=== PATIENT | female | born 1970 | race Two or more races ===

== ENCOUNTER 2016-11-23 00:18 | Inpatient (IN) | payer BC ==
[2016-11-23] MEDS ORDERED: diPHENhydraMINE IV* 50 MG/ML 1 ml VIAL (BENADRYL) ONE (01:08)
[2016-11-23] MEDS ORDERED: Haloperidol INJ IV/IM* 5 MG/ML AMP ONE (01:08)
[2016-11-23] MEDS ORDERED: LORazepam INJ* 2 MG/ML 1 ML VIAL ONE (01:08)
[2016-11-23 02:20] LABS: Hematocrit 33 % (35-47); Hemoglobin 9.9 g/dl (12.0-16.0); Mean Corpuscular HGB Conc 30 g/dl (31-36); Mean Corpuscular Hemoglobin 19 pg (27-31); Mean Corpuscular Volume 65 fL (80-97); Mean Platelet Volume 9 um3 (7.4-10.4); Red Blood Count 5.12 10^6/ul (4.0-5.4); Red Cell Distribution Width 18 % (10.5-15); White Blood Count 11.3 10^3/ul (3.5-10.8)
[2016-11-23 02:21] LABS: Comments Flag Yes
[2016-11-23 02:22] LABS: Add Diff/Slide Review? Slide Review Added
[2016-11-23 02:28] LABS: ALT 14 U/L (7-52); AST 23 U/L (13-39); Acetaminophen < 15 mcg/mL; Albumin 3.7 g/dL (3.2-5.2); Alcohol < 10 mg/dL (<10); Alkaline Phosphatase 59 U/L (34-104); Anion Gap 6 mmol/L (2-11); BUN/Creatinine Ratio 13.3 (8-20); Blood Urea Nitrogen 11 mg/dL (6-24); CO2 Carbon Dioxide 25 mmol/L (22-32); Calcium 8.8 mg/dL (8.6-10.3); Chloride 107 mmol/L (101-111); EGFR African American 95.2 (>60); Glucose 100 mg/dL (70-100); Potassium 3.6 mmol/L (3.5-5.0); Salicylate < 2.50 mg/dL (<30); Sodium 138 mmol/L (133-145); Total Protein 6.7 g/dL (6.4-8.9)
[2016-11-23 02:40] LABS: TSH (Thyroid Stimulating Horm) 6.34 mcIU/mL (0.34-5.60)
[2016-11-23 03:24] LABS: Hypochromasia 2+; Microcytosis 2+
[2016-11-23 06:31] LABS: Urine Bacteria 1+ (Absent); Urine Bilirubin Negative (Negative); Urine Glucose Negative (Negative); Urine Nitrite Negative (Negative)
--- NOTE | 2016-11-23 06:37 | ED ---
Nacho Al Rebecca, scribed for Junaid Palacios on 11/23/16 at 0209 . Psychiatric Complaint - HPI Summary HPI Summary: Pt is a 46 y/o F BIBA accompanied by [place] [employer] as a 941. Per nurse's triage note, the pt had been running in traffic and had a spit mask applied [employer] [employer]. per police report, she had been spitting at the police and EMS staff. Upon arrival to [facility], the pt is combative and noncompliant. On evaluatoin pt confirms that she was running down the road and stated how she "felt my child was under attack" and that the "police were coming to my house and threatening me" so she "was running down, trying to follow the structures of my son and where they were going." Stated "I was following but then when I saw the big black trucks I said this is it" and that she "told a lady who is driving that ' if you don't call the police you will .'" Pt denies any drug or EtOH use and denies any pain. - History Of Current Complaint Chief Complaint: EDMentalHealth Time Seen by Provider: 11/23/16 01:22 Hx Obtained From: Patient Onset/Duration: Still Present - Combative, noncompliant Character: Angry Aggravating Factor(s): Nothing Alleviating Factor(s): Nothing - Allergies/Home Medications Allergies/Adverse Reactions: Allergies Allergy/AdvReac Type Severity Reaction Status Date / Time No Known Allergies Allergy Verified 11/23/16 00:30 PMH/Surg Hx/FS Hx/Imm Hx Previously Healthy: No - UNKNOWN - combative and uncooperative Infectious Disease History: Unable to Obtain/Confirm Infectious Disease History: Reports: Traveled Outside the [place] in Last 30 Days - Family History Known Family History: Positive: Unknown - Combative and uncooperative - Social History Alcohol Use: unknown Substance Use Type: Reports: Other Substance Use Comment - Amount & Last Used: unknown Smoking Status (MU): Unknown if Ever Smoked Review of Systems Positive: Other - NEGATIVE: any pain Positive: Other - combative, noncompliant All Other Systems Reviewed And Are Negative: Yes Physical Exam - Summary Physical Exam Summary: Appearance: Restrained Skin: warm, dry, reflects adequate perfusion Head/face: normal Eyes: EOMI, ROSANGELA ENT: normal Respiratory: CTA, breath sounds present Cardiovascular: RRR, pulses symmetrical Abdomen: nontender, soft Bowel: present Musculoskeletal: No edema Neuro: normal, sensory motor intact, A&Ox3 Psychiatric: Anxious, combative Triage Information Reviewed: Yes Vital Signs On Initial Exam: Initial Vitals Temp Pulse Resp BP Pulse Ox 98.2 F 122 20 127/89 99 11/23/16 00:20 11/23/16 00:20 11/23/16 00:20 11/23/16 00:20 11/23/16 00:20 Vital Signs Reviewed: Yes Diagnostics - Vital Signs Vital Signs Temp Pulse Resp BP Pulse Ox 11/23/16 01:30 120/76 11/23/16 00:20 98.2 F 122 20 127/89 99 - Laboratory Result Diagrams: 11/23/16 02:03 11/23/16 02:03 Lab Statement: Any lab studies that have been ordered have been reviewed, and results considered in the medical decision making process. Course/Dx - Course Assessment/Plan: Pt is a 46 y/o F BIBA accompanied by [facility] as a 941. Per nurse's triage note, the pt had been running in traffic and had a spit mask applied [employer] [employer]. per police report, she had been spitting at the police and EMS staff. Upon arrival to [facility], the pt is combative and noncompliant. On evaluatoin pt confirms that she was running down the road and stated how she "felt my child was under attack" and that the "police were coming to my house and threatening me" so she "was running down, trying to follow the structures of my son and where they were going." Stated "I was following but then when I saw the big black trucks I said this is it" and that she "told a lady who is driving that 'if you don't call the police you will .'" Pt denies any drug or EtOH use and denies any pain. Medically cleared for MHE at 0533. Pt will be signed out, pending dispo, awaiting completion of MHE. Elevated BP noted. - Differential Dx/Clinical Impression Provider Diagnosis: Acute psychosis Discharge - Discharge Plan Condition: Stable Disposition: OTHER Discharge Disposition Comment: Pt will be signed out, pending dispo, awaiting MHE completion Referrals: Non Staff,Doctor [Primary Care Provider] - The documentation as recorded by the scribNacho wright Rebecca accurately reflects the service I personally performed and the decisions made by me, Junaid Palacios.
[2016-11-23 06:38] LABS: Benzodiazepine Urine Screen None Detected (None Detect)
[2016-11-23] MEDS ORDERED: LORazepam INJ* 2 MG/ML 1 ML VIAL IM ONE (11:25)
[2016-11-23] MEDS ORDERED: Acetaminophen TAB* 325 MG PO PRN (12:29)
[2016-11-23] MEDS ORDERED: Al Hydrox/Mg Hydrox/Simet LIQ* 30 ML UDC PO PRN (12:29)
--- NOTE | 2016-11-23 17:21 | ED ---
Anca Al Alfonso, scribed for Jyoti Carranza MD on 11/23/16 at 1220 . Progress - Progress Note Progress Note: This patient was signed out from Dr. Palacios, pending disposition, awaiting MHE. After MHE patient [place] be [place] [facility] The patients condition is stable and will be admitted with Dx of acute psychosis NOS. Condition: stable Disposition: admit [facility]. Reevaluated at 1215: Patient states she does not want to rehash history of present illness. She appears well. She is talking. - Consult/PCP Time Called: 09:51 Course/Dx - Diagnoses Provider Diagnoses: Acute psychosis The documentation as recorded by the Anca cespedes Alfonso accurately reflects the service I personally performed and the decisions made by , Jyoti Carranza MD.
[2016-11-24] MEDS: Haloperidol TAB* 5 MG PO PRN (09:38)
[2016-11-24] MEDS: LORazepam TAB(*) 1 MG PO PRN (09:39)
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
[2016-11-24] MEDS ORDERED: traZODone TAB* 50 MG TAB PO PRN (15:53)
[2016-11-24] MEDS: ARIPiprazole TAB* 5 MG PO SCH (20:32)
[2016-11-25] MEDS ORDERED: guaiFENesin LIQ* 100 MG/5 ML UDC PO ONE (18:00)
[2016-11-25] MEDS: ARIPiprazole TAB* 5 MG PO SCH (21:22)
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
[2016-11-26] MEDS: Docusate CAP* 100 MG PO PRN (19:30)
[2016-11-26] MEDS: diPHENhydraMINE PO* 50 MG PO PRN (20:43)
[2016-11-26] MEDS: ARIPiprazole TAB* 5 MG PO SCH (21:15)
--- NOTE | 2016-11-27 10:42 | PN ---
Subjective - Subjective Service Type: 22472 Hosp care 15 min low complexity Subjective: Patient noted have inappropriate sexual and intrusive behaviors. Patient noted to over the weekend continue manic symptoms of poor sleep, uatsdin preoccupation, grandiose and paranoid delusions, and rapid speech. Patient noted to be dancing naked in the comfort room. She reports she was exercising and removed her clothes due to her sweating. She reports she is a foreigner and did not understand her behaviors could be looked upon as inappropriate. Patient has some insight when this provider confronts her logic during attempts to minimize the behavior. Patient noted to attend groups but has been asked to leave groups due to her becoming disruptive or being tangential when speaking. Patient informed TOO would be initiated today. She denies SI/HI and AH/VH. Objective - Appearance Appearance: Well Developed/Nourished Dysmorphic Features: No Hygiene: Normal Grooming: Fairly Well Kept - Behavior Exhibits Abnormal Movement: No - Attitude and Relatedness Attitude and Relatedness: Cooperative Eye Contact: Good - Speech Quality: Unpressured Latencies: Normal Quantity: Copious - Mood Patient's Decription of Mood: "Fine" - Affect Observed Affect: Expansive Affect Consistent with: Euthymia - Thought Process Patient's Thought Process: Coherent Thought Content: No Passive Wish, No Suicidal Planning, No Homicidal Ideation, No Paranoid Ideation - Sensorium Experiencing Hallucinations: No, Sensorium is Clear Type of Hallucinations: Visual: No, Auditory: No, Command: No - Level of Consciousness Level of Consciousness: Alert Orientation: Yes Intact, Yes Orientated to Time, Yes Orientated to Place, Yes Orientated to Person - Impulse Control Impulse Control: Intact - Insight and Judgement Insight and Judgement: Fair - Group Participation Particating in Group Activities: Yes - Medication Management Medication Management Adherence: Yes Assessment - Assessment Merits Inpatient Hospitalization: For Immediate Safety, For Stabilization Inpatient DSM-IV Dx: ASSESSMENT: . 1. Bipolar 1 d/o MRE manic with PFs Plan - Plan Treatment Plan: Name: SHERYL WHITE Birthdate: 1970 [id number] PLAN: ------ 1. Continue admission to [facility] for safety and symptom mx. 2. Patient declines recommendation for start of psychotropic meds. 3. Patient informed Abilify 10mg po qhs has been started for mood stabilization and psychosis. 4. Patient declined recommended re-start of Trazodone for insomnia and Gabapentin for anxiety. 5. Patient informed treatment over objection will be initiated. 6. Collateral information obtained from son and ex- without sharing with them information of patient's admission. 7. Patient to participate in milieu activities and groups. Continued Medication Management: Continue Outpt Medication Medications: Current Medications Acetaminophen (Tylenol Tab*) 650 mg PO Q4H PRN PRN Reason: for pain; or Temp >101 F Al Hydrox/Mg Hydrox/Simethicone (Maalox Plus*) 30 ml PO Q4H PRN PRN Reason: INDIGESTION Last Admin: 11/25/16 14:24 Dose: 30 ml Aripiprazole (Abilify Tab*) 10 mg PO BEDTIME SYDNIE Last Admin: 11/26/16 21:15 Dose: Not Given Diphenhydramine HCl (Benadryl Po*) 50 mg PO Q6H PRN PRN Reason: AGITATION/ANXIETY/INSOMNIA Last Admin: 11/26/16 20:43 Dose: 50 mg Docusate Sodium (Colace Cap*) 200 mg PO DAILY PRN PRN Reason: CONSTIPATION Last Admin: 11/26/16 19:30 Dose: 200 mg Haloperidol (Haldol Tab*) 5 mg PO Q6H PRN PRN Reason: AGITATION/ANXIETY/INSOMNIA Last Admin: 11/24/16 09:38 Dose: 5 mg Lorazepam (Ativan Tab(*)) 2 mg PO Q6H PRN PRN Reason: AGITATION/ANXIETY/INSOMNIA Last Admin: 11/24/16 09:39 Dose: 2 mg Trazodone HCl (Desyrel Tab*) 50 mg PO BEDTIME PRN PRN Reason: INSOMNIA - Discharge Plan Discharge Plan: Outpatient Follow Up
[2016-11-27] MEDS: Docusate CAP* 100 MG PO PRN (13:57)
[2016-11-27] MEDS: Haloperidol TAB* 5 MG PO PRN (16:23)
[2016-11-27] MEDS: LORazepam TAB(*) 1 MG PO PRN (16:23)
[2016-11-27] MEDS ORDERED: Neomycin/Polym/Bacit TOP OINT* 15 GM TOPICAL PRN (16:47)
[2016-11-27] MEDS ORDERED: CMCS: Melatonin (NF) 3 MG TAB PO PRN (16:48)
[2016-11-27] MEDS: ARIPiprazole TAB* 5 MG PO SCH (21:15)
[2016-11-28] MEDS: Neomycin/Polym/Bacit TOP OINT* 15 GM TOPICAL SCH (11:38)
--- NOTE | 2016-11-28 16:01 | PN ---
Subjective - Subjective Service Type: 96592 Hosp care 15 min low complexity Subjective: Patient noted to continue displaying manic behaviors including intrusiveness, easy irritability, disruptive behaviors in the milieu, inappropriate comments, and inappropriate touching. She is expansive in affect and circumstantial in TP. Patient continues to have TC focused on discharge, retrieving her belongings from the [facility] and paranoid/ grandiose delusions noted on admission. Patient has not been med compliant. She was informed TOO has been initiated. Patient denies SI/HI and AH/VH. Objective - Appearance Appearance: Well Developed/Nourished, Healthy Appearing Dysmorphic Features: No Hygiene: Normal Grooming: Fairly Well Kept - Behavior Psychomotor Activities: Normal Exhibits Abnormal Movement: No - Attitude and Relatedness Attitude and Relatedness: Minimally Cooperative - Speech Quality: Unpressured Latencies: Short Quantity: Copious - Mood Patient's Decription of Mood: "Anxious" - Affect Observed Affect: Expansive Affect Consistent with: Euthymia - Thought Process Patient's Thought Process: Coherent Thought Content: No Passive Wish, No Suicidal Planning, No Homicidal Ideation, No Paranoid Ideation - Sensorium Experiencing Hallucinations: No, Sensorium is Clear Type of Hallucinations: Visual: No, Auditory: No, Command: No - Level of Consciousness Level of Consciousness: Alert Orientation: Yes Intact, Yes Orientated to Time, Yes Orientated to Place, Yes Orientated to Person - Impulse Control Impulse Control: Impaired - Insight and Judgement Insight and Judgement: Impaired - Group Participation Particating in Group Activities: No - Medication Management Medication Management Adherence: No Assessment - Assessment Merits Inpatient Hospitalization: For Immediate Safety, For Stabilization Inpatient DSM-IV Dx: ASSESSMENT: . 1. Bipolar 1 d/o MRE manic with PFs Plan - Plan Treatment Plan: Name: SHERYL WHITE Birthdate: 1970 [id number] PLAN: ------ 1. Continue admission to [facility] for safety and symptom mx. 2. Patient declines recommendation for start of psychotropic meds. 3. Patient encouraged to take Abilify 10mg po qhs which was started for mood stabilization and psychosis. 4. Patient declined recommended re-start of Trazodone for insomnia and Gabapentin for anxiety. 5. Patient informed treatment over objection has been initiated. 6. Collateral information obtained from son and ex- without sharing with them information of patient's admission. 7. Patient to participate in milieu activities and groups. Medications: Current Medications Acetaminophen (Tylenol Tab*) 650 mg PO Q4H PRN PRN Reason: for pain; or Temp >101 F Al Hydrox/Mg Hydrox/Simethicone (Maalox Plus*) 30 ml PO Q4H PRN PRN Reason: INDIGESTION Last Admin: 11/25/16 14:24 Dose: 30 ml Aripiprazole (Abilify Tab*) 10 mg PO BEDTIME SYDNIE Last Admin: 11/27/16 21:15 Dose: Not Given Diphenhydramine HCl (Benadryl Po*) 50 mg PO Q6H PRN PRN Reason: AGITATION/ANXIETY/INSOMNIA Last Admin: 11/26/16 20:43 Dose: 50 mg Docusate Sodium (Colace Cap*) 200 mg PO DAILY PRN PRN Reason: CONSTIPATION Last Admin: 11/27/16 13:57 Dose: 200 mg Haloperidol (Haldol Tab*) 5 mg PO Q6H PRN PRN Reason: AGITATION/ANXIETY/INSOMNIA Last Admin: 11/27/16 16:23 Dose: 5 mg Lorazepam (Ativan Tab(*)) 2 mg PO Q6H PRN PRN Reason: AGITATION/ANXIETY/INSOMNIA Last Admin: 11/27/16 16:23 Dose: 2 mg Melatonin (Melatonin (Nf)) 3 mg PO BEDTIME PRN PRN Reason: INSOMNIA Neomycin/Polymyxin/Bacitracin (Neosporin Top Oint Tube*) 1 applic TOPICAL DAILY SYDNIE Last Admin: 11/28/16 11:38 Dose: Not Given Trazodone HCl (Desyrel Tab*) 50 mg PO BEDTIME PRN PRN Reason: INSOMNIA - Discharge Plan Discharge Plan: Outpatient Follow Up
[2016-11-28] MEDS: Docusate CAP* 100 MG PO PRN (16:19)
[2016-11-28] MEDS: ARIPiprazole TAB* 5 MG PO SCH (20:53)
[2016-11-28] MEDS: Docusate CAP* 100 MG PO SCH (21:24)
[2016-11-29] MEDS: Docusate CAP* 100 MG PO SCH ×3 (07:46→20:10)
[2016-11-29] MEDS: Neomycin/Polym/Bacit TOP OINT* 15 GM TOPICAL SCH (10:25)
--- NOTE | 2016-11-29 10:47 | PN ---
Subjective - Subjective Service Type: [id number] Hosp care 15 min low complexity Subjective: Patient noted to continue displaying prior noted manic behaviors. She is expansive in affect and circumstantial in TP. She is more PMA today. Her gaze is intense. Patient continues to be med non- compliant. Patient again had poor sleep. Patient denies SI/HI and AH/VH. Objective - Appearance Appearance: Well Developed/Nourished Dysmorphic Features: No Hygiene: Normal Grooming: Fairly Well Kept - Behavior Psychomotor Activities: Abnormal-Increased Exhibits Abnormal Movement: No - Attitude and Relatedness Attitude and Relatedness: Cooperative Eye Contact: Fair - Speech Quality: Pressured Latencies: Short Quantity: Copious - Mood Patient's Decription of Mood: "Fine" - Affect Observed Affect: Expansive Affect Consistent with: Euthymia - Thought Process Patient's Thought Process: Coherent Thought Content: Yes Paranoid Ideation, No Passive Wish, No Suicidal Planning, No Homicidal Ideation - Sensorium Experiencing Hallucinations: No, Sensorium is Clear Type of Hallucinations: Visual: No, Auditory: No, Command: No - Level of Consciousness Level of Consciousness: Alert Orientation: Yes Intact, Yes Orientated to Time, Yes Orientated to Place, Yes Orientated to Person - Impulse Control Impulse Control: Impaired - Insight and Judgement Insight and Judgement: Impaired - Group Participation Particating in Group Activities: No - Medication Management Medication Management Adherence: No Assessment - Assessment Merits Inpatient Hospitalization: For Immediate Safety, For Stabilization Inpatient DSM-IV Dx: ASSESSMENT: . 1. Bipolar 1 d/o MRE manic with PFs Plan - Plan Treatment Plan: Name: SHERYL WHITE Birthdate: 1970 [id number] PLAN: ------ 1. Continue admission to [facility] for safety and symptom mx. 2. Patient declines recommendation for start of psychotropic meds. 3. Patient encouraged to take Abilify 10mg po qhs which was started for mood stabilization and psychosis. 4. Patient declined recommended re-start of Trazodone for insomnia and Gabapentin for anxiety. 5. Patient informed treatment over objection has been initiated. 6. Collateral information obtained from son and ex- without sharing with them information of patient's admission. 7. Patient to participate in milieu activities and groups. Medications: Current Medications Acetaminophen (Tylenol Tab*) 650 mg PO Q4H PRN PRN Reason: for pain; or Temp >101 F Al Hydrox/Mg Hydrox/Simethicone (Maalox Plus*) 30 ml PO Q4H PRN PRN Reason: INDIGESTION Last Admin: 11/25/16 14:24 Dose: 30 ml Aripiprazole (Abilify Tab*) 10 mg PO BEDTIME [facility] Last Admin: 11/28/16 20:53 Dose: Not Given Diphenhydramine HCl (Benadryl Po*) 50 mg PO Q6H PRN PRN Reason: AGITATION/ANXIETY/INSOMNIA Last Admin: 11/26/16 20:43 Dose: 50 mg Docusate Sodium (Colace Cap*) 200 mg PO BID [facility] Last Admin: 11/29/16 07:46 Dose: Not Given Haloperidol (Haldol Tab*) 5 mg PO Q6H PRN PRN Reason: AGITATION/ANXIETY/INSOMNIA Last Admin: 11/27/16 16:23 Dose: 5 mg Lorazepam (Ativan Tab(*)) 2 mg PO Q6H PRN PRN Reason: AGITATION/ANXIETY/INSOMNIA Last Admin: 11/27/16 16:23 Dose: 2 mg Melatonin (Melatonin (Nf)) 3 mg PO BEDTIME PRN PRN Reason: INSOMNIA Neomycin/Polymyxin/Bacitracin (Neosporin Top Oint Tube*) 1 applic TOPICAL DAILY [facility] Last Admin: 11/29/16 10:25 Dose: Not Given Trazodone HCl (Desyrel Tab*) 50 mg PO BEDTIME PRN PRN Reason: INSOMNIA
[2016-11-29] MEDS: ARIPiprazole TAB* 5 MG PO SCH (20:11)
[2016-11-29] MEDS: diPHENhydraMINE PO* 50 MG PO PRN (23:09)
[2016-11-30] MEDS: Docusate CAP* 100 MG PO SCH ×2 (08:32→20:37)
[2016-11-30] MEDS: diPHENhydraMINE PO* 50 MG PO PRN ×3 (08:34→21:08)
--- NOTE | 2016-11-30 10:43 | PN ---
Subjective - Subjective Service Type: [id number] Hosp care 15 min low complexity Subjective: Patient noted to display ongoing manic behaviors including intrusiveness, easy irritability, disruptive behaviors in the milieu, inappropriate comments, and behaviors and manner demonstrating PMA. She is expansive in affect, with intense gaze on interview and circumstantial TP. Patient continues to have TC focused on discharge, refusing meds, and attempting to "regain her dignity" as feels she is being judged by staff as hypersexual due to being found naked in the comfort room. Patient reports she was naked due to exercising and not wanting the sweat to enter her clothing and she believed the comfort room was private while occupied. Patient reports she's been in touch with [place] police who informed patient they will have her son move her belongings from her apartment. Patient continues to be med non- compliant. She was informed TOO has been submitted and we are awaiting court date. Patient denies SI/HI and AH/VH. Objective - Appearance Appearance: Well Developed/Nourished Dysmorphic Features: No Hygiene: Normal Grooming: Fairly Well Kept - Behavior Psychomotor Activities: Abnormal-Increased Exhibits Abnormal Movement: No - Attitude and Relatedness Attitude and Relatedness: Cooperative Eye Contact: Fair - Speech Quality: Pressured Latencies: Short Quantity: Copious - Mood Patient's Decription of Mood: "Fine" - Affect Observed Affect: Tense Affect Consistent with: Dysphoria - Thought Process Patient's Thought Process: Coherent Thought Content: Yes Paranoid Ideation, No Passive Wish, No Suicidal Planning, No Homicidal Ideation - Sensorium Experiencing Hallucinations: No, Sensorium is Clear Type of Hallucinations: Visual: No, Auditory: No, Command: No - Level of Consciousness Level of Consciousness: Alert Orientation: Yes Intact, Yes Orientated to Time, Yes Orientated to Place, Yes Orientated to Person - Impulse Control Impulse Control: Impaired - Insight and Judgement Insight and Judgement: Impaired - Group Participation Particating in Group Activities: No - Medication Management Medication Management Adherence: No Assessment - Assessment Merits Inpatient Hospitalization: For Immediate Safety, For Stabilization Inpatient DSM-IV Dx: ASSESSMENT: . 1. Bipolar 1 d/o MRE manic with PFs Plan - Plan Treatment Plan: Name: SHERYL WHITE Birthdate: 1970 [id number] PLAN: ------ 1. Continue admission to [facility] for safety and symptom mx. 2. Patient declines recommendation for start of psychotropic meds. 3. Patient encouraged to take Abilify 10mg po qhs which was started for mood stabilization and psychosis. 4. Patient declined recommended re-start of Trazodone for insomnia and Gabapentin for anxiety. 5. Patient informed treatment over objection has been submitted, awaiting court date. 6. Continue Colace 200mg po BID for patient constipation. She reports benefit to bowel movement on this dose. 7. Collateral information obtained from son and ex- without sharing with them information of patient's admission. 8. Patient to participate in milieu activities and groups. Medications: Current Medications Acetaminophen (Tylenol Tab*) 650 mg PO Q4H PRN PRN Reason: for pain; or Temp >101 F Al Hydrox/Mg Hydrox/Simethicone (Maalox Plus*) 30 ml PO Q4H PRN PRN Reason: INDIGESTION Last Admin: 11/25/16 14:24 Dose: 30 ml Aripiprazole (Abilify Tab*) 10 mg PO BEDTIME [facility] Last Admin: 11/29/16 20:11 Dose: Not Given Diphenhydramine HCl (Benadryl Po*) 50 mg PO Q6H PRN PRN Reason: AGITATION/ANXIETY/INSOMNIA Last Admin: 11/30/16 08:34 Dose: 50 mg Docusate Sodium (Colace Cap*) 200 mg PO BID [facility] Last Admin: 11/30/16 08:32 Dose: 200 mg Haloperidol (Haldol Tab*) 5 mg PO Q6H PRN PRN Reason: AGITATION/ANXIETY/INSOMNIA Last Admin: 11/27/16 16:23 Dose: 5 mg Lorazepam (Ativan Tab(*)) 2 mg PO Q6H PRN PRN Reason: AGITATION/ANXIETY/INSOMNIA Last Admin: 11/27/16 16:23 Dose: 2 mg Melatonin (Melatonin (Nf)) 3 mg PO BEDTIME PRN PRN Reason: INSOMNIA Last Admin: 11/29/16 12:20 Dose: 3 mg Neomycin/Polymyxin/Bacitracin (Neosporin Top Oint Tube*) 1 applic TOPICAL DAILY [facility] Last Admin: 11/29/16 10:25 Dose: Not Given Trazodone HCl (Desyrel Tab*) 50 mg PO BEDTIME PRN PRN Reason: INSOMNIA - Discharge Plan Discharge Plan: Outpatient Follow Up
[2016-11-30] MEDS: Neomycin/Polym/Bacit TOP OINT* 15 GM TOPICAL SCH (12:57)
[2016-11-30] MEDS: ARIPiprazole TAB* 5 MG PO SCH ×2 (20:22→21:09)
[2016-11-30] MEDS: Haloperidol TAB* 5 MG PO PRN (21:32)
[2016-12-01] MEDS ORDERED: LORazepam TAB(*) 1 MG ONE (00:40)
[2016-12-01] MEDS: Docusate CAP* 100 MG PO SCH ×2 (08:33→21:16)
[2016-12-01] MEDS: diPHENhydraMINE PO* 50 MG PO PRN ×3 (08:55→21:20)
[2016-12-01] MEDS: Neomycin/Polym/Bacit TOP OINT* 15 GM TOPICAL SCH (08:56)
--- NOTE | 2016-12-01 10:00 | PN ---
Subjective - Subjective Service Type: [id number] Hosp care 15 min low complexity Subjective: Patient noted to display ongoing manic behaviors including intrusiveness, easy irritability, disruptive behaviors in the milieu, inappropriate comments, and behaviors and manner demonstrating PMA. She is expansive in affect, with intense gaze on interview and tangential TP. Patient continues to have TC focused on discharge. Patient informed hearing for SHERLY has been scheduled for Sunday12/05/16 at 2pm. Patient continues to be med non-compliant. Patient denies SI/HI and AH/VH. Objective - Appearance Appearance: Well Developed/Nourished, Healthy Appearing Dysmorphic Features: No Hygiene: Normal Grooming: Fairly Well Kept - Behavior Psychomotor Activities: Abnormal-Increased Exhibits Abnormal Movement: No - Attitude and Relatedness Attitude and Relatedness: Psychotically Related Eye Contact: Poor - Speech Quality: Pressured Latencies: Short Quantity: Copious - Mood Patient's Decription of Mood: "Fine" - Affect Observed Affect: Expansive - Thought Process Patient's Thought Process: Loose Associations Thought Content: No Passive Wish, No Suicidal Planning, No Homicidal Ideation, No Paranoid Ideation - Sensorium Experiencing Hallucinations: No, Sensorium is Clear Type of Hallucinations: Visual: No, Auditory: No, Command: No - Level of Consciousness Level of Consciousness: Alert Orientation: Yes Intact, Yes Orientated to Time, Yes Orientated to Place, Yes Orientated to Person - Impulse Control Impulse Control: Impaired - Insight and Judgement Insight and Judgement: Impaired - Group Participation Particating in Group Activities: No - Medication Management Medication Management Adherence: Partial Assessment - Assessment Merits Inpatient Hospitalization: For Immediate Safety, For Stabilization Inpatient DSM-IV Dx: ASSESSMENT: . 1. Bipolar 1 d/o MRE manic with PFs Plan - Plan Treatment Plan: Name: SHERYL WHITE Birthdate: 1970 [id number] PLAN: ------ 1. Continue admission to [facility] for safety and symptom mx. 2. Patient declines recommendation for start of psychotropic meds. 3. Patient encouraged to take Abilify 10mg po qhs which was started for mood stabilization and psychosis. 4. Patient declined recommended re-start of Trazodone for insomnia and Gabapentin for anxiety. 5. Patient informed hearing for TOO will be Sunday12/05/16 at 2pm. 6. Continue Colace 200mg po BID for patient constipation. She reports benefit to bowel movement on this dose. 7. Collateral information obtained from son and ex- without sharing with them information of patient's admission. 8. Patient to participate in milieu activities and groups. Medications: Current Medications Acetaminophen (Tylenol Tab*) 650 mg PO Q4H PRN PRN Reason: for pain; or Temp >101 F Al Hydrox/Mg Hydrox/Simethicone (Maalox Plus*) 30 ml PO Q4H PRN PRN Reason: INDIGESTION Last Admin: 11/25/16 14:24 Dose: 30 ml Aripiprazole (Abilify Tab*) 10 mg PO BEDTIME [facility] Last Admin: 11/30/16 21:09 Dose: 10 mg Diphenhydramine HCl (Benadryl Po*) 50 mg PO Q6H PRN PRN Reason: AGITATION/ANXIETY/INSOMNIA Last Admin: 12/01/16 08:55 Dose: 50 mg Docusate Sodium (Colace Cap*) 200 mg PO BID [facility] Last Admin: 12/01/16 08:33 Dose: 200 mg Haloperidol (Haldol Tab*) 5 mg PO Q6H PRN PRN Reason: AGITATION/ANXIETY/INSOMNIA Last Admin: 11/30/16 21:32 Dose: 5 mg Lorazepam (Ativan Tab(*)) 2 mg PO Q6H PRN PRN Reason: AGITATION/ANXIETY/INSOMNIA Last Admin: 11/27/16 16:23 Dose: 2 mg Melatonin (Melatonin (Nf)) 3 mg PO BEDTIME PRN PRN Reason: INSOMNIA Last Admin: 11/29/16 12:20 Dose: 3 mg Neomycin/Polymyxin/Bacitracin (Neosporin Top Oint Tube*) 1 applic TOPICAL DAILY [facility] Last Admin: 12/01/16 08:56 Dose: 1 applic Trazodone HCl (Desyrel Tab*) 50 mg PO BEDTIME PRN PRN Reason: INSOMNIA Last Admin: 11/30/16 21:32 Dose: 50 mg - Discharge Plan Discharge Plan: Outpatient Follow Up
[2016-12-01] MEDS: Senna TAB PO PRN (14:01)
[2016-12-01] MEDS: ARIPiprazole TAB* 5 MG PO SCH (21:16)
[2016-12-02] MEDS: Omeprazole CAP* 20 MG PO SCH (06:00)
[2016-12-02] MEDS: diPHENhydraMINE PO* 50 MG PO PRN ×3 (09:08→20:04)
[2016-12-02] MEDS: Senna TAB PO PRN ×2 (09:08→20:04)
[2016-12-02] MEDS: Docusate CAP* 100 MG PO SCH ×2 (09:09→20:04)
[2016-12-02] MEDS: Neomycin/Polym/Bacit TOP OINT* 15 GM TOPICAL SCH (09:10)
[2016-12-02] MEDS: ARIPiprazole TAB* 5 MG PO SCH (20:04)
[2016-12-03] MEDS: Omeprazole CAP* 20 MG PO SCH (06:23)
[2016-12-03] MEDS: diPHENhydraMINE PO* 50 MG PO PRN ×3 (08:42→23:40)
[2016-12-03] MEDS: Docusate CAP* 100 MG PO SCH ×2 (08:43→22:17)
[2016-12-03] MEDS: Neomycin/Polym/Bacit TOP OINT* 15 GM TOPICAL SCH (09:33)
[2016-12-03] MEDS: Senna TAB PO PRN (15:23)
[2016-12-03] MEDS: ARIPiprazole TAB* 5 MG PO SCH (20:56)
[2016-12-04] MEDS: Omeprazole CAP* 20 MG PO SCH (06:09)
[2016-12-04] MEDS: diPHENhydraMINE PO* 50 MG PO PRN ×3 (08:09→20:17)
[2016-12-04] MEDS: Senna TAB PO PRN (08:10)
[2016-12-04] MEDS: Docusate CAP* 100 MG PO SCH ×2 (08:10→20:14)
[2016-12-04] MEDS: Neomycin/Polym/Bacit TOP OINT* 15 GM TOPICAL SCH (08:52)
--- NOTE | 2016-12-04 11:39 | PN ---
[facility]: Group Therapy Note - Service Type Service Type: [id number] Group Psychotherapy - Group Psychotherapy Note: Camilo remains intrusive in cbt programming, presenting as hyperverbal and disorganized. She was finally asked to leave the group as she would not accept redirection and was an agitating and disruptive presence.
--- NOTE | 2016-12-04 18:46 | PN ---
Subjective - Subjective Service Type: [id number] Hosp care 15 min low complexity Subjective: Patient noted to display ongoing manic behaviors including intrusiveness, easy irritability, disruptive behaviors in the milieu, inappropriate comments, and behaviors and manner demonstrating PMA. She is expansive in affect, with intense gaze on interview and circumstantial TP. She was informed TOO hearing will be held tomorrow. Patient denies SI/HI and AH/VH. Objective - Appearance Dysmorphic Features: No Hygiene: Normal Grooming: Fairly Well Kept - Behavior Psychomotor Activities: Abnormal-Increased Exhibits Abnormal Movement: No - Attitude and Relatedness Attitude and Relatedness: Superficially Cooperative Eye Contact: Poor - Speech Quality: Pressured Latencies: Short Quantity: Copious - Mood Patient's Decription of Mood: "Irritable" - Affect Observed Affect: Expansive Affect Consistent with: Dysphoria - Thought Process Patient's Thought Process: Circumstantial Thought Content: Yes Paranoid Ideation, No Passive Wish, No Suicidal Planning, No Homicidal Ideation - Sensorium Experiencing Hallucinations: No, Sensorium is Clear Type of Hallucinations: Visual: No, Auditory: No, Command: No - Level of Consciousness Level of Consciousness: Alert Orientation: Yes Intact, Yes Orientated to Time, Yes Orientated to Place, Yes Orientated to Person - Impulse Control Impulse Control: Intact - Insight and Judgement Insight and Judgement: Impaired - Group Participation Particating in Group Activities: No - Medication Management Medication Management Adherence: No Assessment - Assessment Merits Inpatient Hospitalization: For Immediate Safety, For Stabilization Inpatient DSM-IV Dx: ASSESSMENT: . 1. Bipolar 1 d/o MRE manic with PFs Plan - Plan Treatment Plan: Name: SHERYL WHITE Birthdate: 1970 [id number] PLAN: ------ 1. Continue admission [place] [facility] for safety and symptom mx. 2. Patient declines recommendation for start of psychotropic meds. 3. Patient encouraged to take Abilify 10mg po qhs which was started for mood stabilization and psychosis. 4. Patient declined recommended re-start of Trazodone for insomnia and Gabapentin for anxiety. 5. Patient informed hearing for TOO will be held tomorrow 12/05/16 at 2pm. 6. Continue Colace 200mg po BID for patient constipation. She reports benefit to bowel movement on this dose. 7. Collateral information obtained from son and ex- without sharing with them information of patient's admission. 8. Patient to participate in milieu activities and groups. Medications: Current Medications Acetaminophen (Tylenol Tab*) 650 mg PO Q4H PRN PRN Reason: for pain; or Temp >101 F Al Hydrox/Mg Hydrox/Simethicone (Maalox Plus*) 30 ml PO Q4H PRN PRN Reason: INDIGESTION Last Admin: 11/25/16 14:24 Dose: 30 ml Aripiprazole (Abilify Tab*) 10 mg PO BEDTIME [facility] Last Admin: 12/03/16 20:56 Dose: 10 mg Diphenhydramine HCl (Benadryl Po*) 50 mg PO Q6H PRN PRN Reason: AGITATION/ANXIETY/INSOMNIA Last Admin: 12/04/16 14:26 Dose: 50 mg Docusate Sodium (Colace Cap*) 200 mg PO BID [facility] Last Admin: 12/04/16 08:10 Dose: 200 mg Haloperidol (Haldol Tab*) 5 mg PO Q6H PRN PRN Reason: AGITATION/ANXIETY/INSOMNIA Last Admin: 11/30/16 21:32 Dose: 5 mg Lorazepam (Ativan Tab(*)) 2 mg PO Q6H PRN PRN Reason: AGITATION/ANXIETY/INSOMNIA Last Admin: 11/27/16 16:23 Dose: 2 mg Melatonin (Melatonin (Nf)) 3 mg PO BEDTIME PRN PRN Reason: INSOMNIA Last Admin: 11/29/16 12:20 Dose: 3 mg Neomycin/Polymyxin/Bacitracin (Neosporin Top Oint Tube*) 1 applic TOPICAL DAILY [facility] Last Admin: 12/04/16 08:52 Dose: 1 applic Omeprazole (Prilosec Cap*) 20 mg PO DAILY@0600 [facility] Last Admin: 12/04/16 06:09 Dose: 20 mg Senna (Senokot Tab*) 1 tab PO DAILY PRN PRN Reason: CONSTIPATION Last Admin: 12/04/16 08:10 Dose: 1 tab Trazodone HCl (Desyrel Tab*) 50 mg PO BEDTIME PRN PRN Reason: INSOMNIA Last Admin: 11/30/16 21:32 Dose: 50 mg - Discharge Plan Discharge Plan: Outpatient Follow Up
[2016-12-04] MEDS: ARIPiprazole TAB* 5 MG PO SCH (20:14)
[2016-12-04] MEDS: Senna TAB PO SCH (20:14)
[2016-12-05] MEDS: Omeprazole CAP* 20 MG PO SCH (06:15)
[2016-12-05] MEDS: diPHENhydraMINE PO* 50 MG PO PRN ×3 (07:36→21:49)
[2016-12-05] MEDS: Docusate CAP* 100 MG PO SCH ×2 (07:36→21:51)
[2016-12-05] MEDS: Senna TAB PO SCH ×2 (07:37→21:50)
[2016-12-05] MEDS: Neomycin/Polym/Bacit TOP OINT* 15 GM TOPICAL SCH (08:14)
--- NOTE | 2016-12-05 10:12 | PN ---
Subjective - Subjective Service Type: [id number] Hosp care 15 min low complexity Subjective: Patient noted to be visible in the milieu, appropriately social with staff and select peers. She is less activated in behavior and her speech is interruptible. She is less intrusive, irritable, disruptive and inappropriate in her statements. She is expansive in affect but eye contact is noted to have appropriate gaze. She continues to be circumstantial in TP. She has been court ordered for TOO. She is aware and has been med compliant. Patient denies med s/e's. Patient denies SI /HI and AH/VH. Objective - Appearance Appearance: Well Developed/Nourished Dysmorphic Features: No Hygiene: Normal Grooming: Fairly Well Kept - Behavior Psychomotor Activities: Normal Exhibits Abnormal Movement: No - Attitude and Relatedness Attitude and Relatedness: Cooperative Eye Contact: Good - Speech Quality: Unpressured Latencies: Short Quantity: Copious - Mood Patient's Decription of Mood: "Anxious" - Affect Observed Affect: Expansive Affect Consistent with: Dysphoria - Thought Process Patient's Thought Process: Tangential, Circumstantial Thought Content: No Passive Wish, No Suicidal Planning, No Homicidal Ideation, No Paranoid Ideation - Sensorium Experiencing Hallucinations: No, Sensorium is Clear Type of Hallucinations: Visual: No, Auditory: No, Command: No - Level of Consciousness Level of Consciousness: Alert Orientation: Yes Intact, Yes Orientated to Time, Yes Orientated to Place, Yes Orientated to Person - Impulse Control Impulse Control: Intact - Insight and Judgement Insight and Judgement: Fair - Group Participation Particating in Group Activities: No - Medication Management Medication Management Adherence: Yes Assessment - Assessment Merits Inpatient Hospitalization: For Immediate Safety, For Stabilization Inpatient DSM-IV Dx: ASSESSMENT: . 1. Bipolar 1 d/o MRE manic with PFs Plan - Plan Treatment Plan: Name: SHERYL WHITE Birthdate: 1970 [id number] PLAN: ------ 1. Continue admission to [facility] for safety and symptom mx. 2. Practicing Dermatologist has ordered TOO, hearing held 12/05/16. 3. Continue Abilify 10mg po qhs for mood stabilization and psychosis. 4. Continue Colace 200mg po BID patient constipation. Continue Senokot 3 tabs po BID for constipation. She reports benefit to bowel movement on this regimen. 5. Collateral information obtained from son and ex- without sharing with them information of patient's admission. 6. Patient to participate in milieu activities and groups. Medications: Current Medications Acetaminophen (Tylenol Tab*) 650 mg PO Q4H PRN PRN Reason: for pain; or Temp >101 F Al Hydrox/Mg Hydrox/Simethicone (Maalox Plus*) 30 ml PO Q4H PRN PRN Reason: INDIGESTION Last Admin: 11/25/16 14:24 Dose: 30 ml Aripiprazole (Abilify Tab*) 10 mg PO BEDTIME [facility] Last Admin: 12/04/16 20:14 Dose: 10 mg Diphenhydramine HCl (Benadryl Po*) 50 mg PO Q4H PRN PRN Reason: AGITATION/ANXIETY/INSOMNIA Last Admin: 12/05/16 07:36 Dose: 50 mg Docusate Sodium (Colace Cap*) 200 mg PO BID [facility] Last Admin: 12/05/16 07:36 Dose: 200 mg Haloperidol (Haldol Tab*) 5 mg PO Q6H PRN PRN Reason: AGITATION/ANXIETY/INSOMNIA Last Admin: 11/30/16 21:32 Dose: 5 mg Lorazepam (Ativan Tab(*)) 2 mg PO Q6H PRN PRN Reason: AGITATION/ANXIETY/INSOMNIA Last Admin: 11/27/16 16:23 Dose: 2 mg Melatonin (Melatonin (Nf)) 3 mg PO BEDTIME PRN PRN Reason: INSOMNIA Last Admin: 11/29/16 12:20 Dose: 3 mg Neomycin/Polymyxin/Bacitracin (Neosporin Top Oint Tube*) 1 applic TOPICAL DAILY [facility] Last Admin: 12/05/16 08:14 Dose: Not Given Omeprazole (Prilosec Cap*) 20 mg PO DAILY@0600 [facility] Last Admin: 12/05/16 06:15 Dose: 20 mg Senna (Senokot Tab*) 4 tab PO BID [facility] Last Admin: 12/05/16 07:37 Dose: 4 tab Trazodone HCl (Desyrel Tab*) 50 mg PO BEDTIME PRN PRN Reason: INSOMNIA Last Admin: 11/30/16 21:32 Dose: 50 mg - Discharge Plan Discharge Plan: Outpatient Follow Up Outpatient Program: [facility]
[2016-12-05] MEDS: ARIPiprazole TAB* 5 MG PO SCH (21:50)
[2016-12-06] MEDS: Senna TAB PO SCH ×2 (08:09→20:55)
[2016-12-06] MEDS: diPHENhydraMINE PO* 50 MG PO PRN ×3 (08:09→17:46)
[2016-12-06] MEDS: Docusate CAP* 100 MG PO SCH ×2 (08:10→20:55)
[2016-12-06] MEDS: Neomycin/Polym/Bacit TOP OINT* 15 GM TOPICAL SCH (08:12)
--- NOTE | 2016-12-06 10:23 | PN ---
Subjective - Subjective Service Type: 81306 Hosp care 15 min low complexity Subjective: Patient noted to be visible in the milieu, appropriately social with staff and select peers. She continues to show improvement in manic symptoms. She is less intrusive, irritable, disruptive and inappropriate in her statements. Patient's affect is calm and eye contact is appropriate with appropriate gaze. She is rapid in speech but demonstrates linear TP. She has been court ordered for TOO. She has been med compliant. Patient denies med s/e's. Patient denies SI/HI and AH/VH. Objective - Appearance Appearance: Well Developed/Nourished, Healthy Appearing Dysmorphic Features: No Hygiene: Normal Grooming: Well Kept - Behavior Psychomotor Activities: Normal Exhibits Abnormal Movement: No - Attitude and Relatedness Attitude and Relatedness: Cooperative Eye Contact: Fair - Speech Quality: Unpressured Latencies: Short Quantity: Copious - Mood Patient's Decription of Mood: "Fine" - Affect Observed Affect: Expansive - Thought Process Patient's Thought Process: Coherent Thought Content: No Passive Wish, No Suicidal Planning, No Homicidal Ideation, No Paranoid Ideation - Sensorium Experiencing Hallucinations: No, Sensorium is Clear Type of Hallucinations: Visual: No, Auditory: No, Command: No - Level of Consciousness Level of Consciousness: Alert Orientation: No Intact, No Orientated to Time, No Orientated to Place, No Orientated to Person - Impulse Control Impulse Control: Intact - Insight and Judgement Insight and Judgement: Fair - Group Participation Particating in Group Activities: Yes - Medication Management Medication Management Adherence: Yes Assessment - Assessment Merits Inpatient Hospitalization: For Immediate Safety, For Stabilization Inpatient DSM-IV Dx: ASSESSMENT: . 1. Bipolar 1 d/o MRE manic with PFs Plan - Plan Treatment Plan: Name: SHERYL WHITE Birthdate: 1970 [id number] PLAN: ------ 1. Continue admission to [facility] for safety and symptom mx. 2. Transit Mix Operator has ordered TOO, hearing held 12/05/16. 3. Continue Abilify 10mg po qhs for mood stabilization and psychosis. 4. Continue Colace 200mg po BID patient constipation. Continue Senokot 4 tabs po BID for constipation. She reports benefit to bowel movement on this regimen. 5. Collateral information obtained from son and ex- without sharing with them information of patient's admission. 6. Patient to participate in milieu activities and groups. Medications: Current Medications Acetaminophen (Tylenol Tab*) 650 mg PO Q4H PRN PRN Reason: for pain; or Temp >101 F Al Hydrox/Mg Hydrox/Simethicone (Maalox Plus*) 30 ml PO Q4H PRN PRN Reason: INDIGESTION Last Admin: 11/25/16 14:24 Dose: 30 ml Aripiprazole (Abilify Tab*) 10 mg PO BEDTIME [facility] Last Admin: 12/05/16 21:50 Dose: 10 mg Diphenhydramine HCl (Benadryl Po*) 50 mg PO Q4H PRN PRN Reason: AGITATION/ANXIETY/INSOMNIA Last Admin: 12/06/16 08:09 Dose: 50 mg Docusate Sodium (Colace Cap*) 200 mg PO BID [facility] Last Admin: 12/06/16 08:10 Dose: 200 mg Haloperidol (Haldol Tab*) 5 mg PO Q6H PRN PRN Reason: AGITATION/ANXIETY/INSOMNIA Last Admin: 11/30/16 21:32 Dose: 5 mg Lorazepam (Ativan Tab(*)) 2 mg PO Q6H PRN PRN Reason: AGITATION/ANXIETY/INSOMNIA Last Admin: 11/27/16 16:23 Dose: 2 mg Melatonin (Melatonin (Nf)) 3 mg PO BEDTIME PRN PRN Reason: INSOMNIA Last Admin: 11/29/16 12:20 Dose: 3 mg Neomycin/Polymyxin/Bacitracin (Neosporin Top Oint Tube*) 1 applic TOPICAL DAILY [facility] Last Admin: 12/06/16 08:12 Dose: 1 applic Omeprazole (Prilosec Cap*) 20 mg PO DAILY@0600 [facility] Last Admin: 12/05/16 06:15 Dose: 20 mg Senna (Senokot Tab*) 3 tab PO BID [facility] Last Admin: 12/06/16 08:09 Dose: 3 tab Trazodone HCl (Desyrel Tab*) 50 mg PO BEDTIME PRN PRN Reason: INSOMNIA Last Admin: 11/30/16 21:32 Dose: 50 mg - Discharge Plan Discharge Plan: Outpatient Follow Up Outpatient Program: [facility]
[2016-12-06] MEDS: Omeprazole CAP* 20 MG PO SCH (13:33)
[2016-12-06] MEDS: ARIPiprazole TAB* 5 MG PO SCH (20:56)
[2016-12-07] MEDS: diPHENhydraMINE PO* 50 MG PO PRN ×3 (02:17→21:24)
[2016-12-07] MEDS: Omeprazole CAP* 20 MG PO SCH (06:51)
[2016-12-07] MEDS: Senna TAB PO SCH ×3 (06:51→21:22)
[2016-12-07] MEDS: Docusate CAP* 100 MG PO SCH ×3 (06:51→21:23)
[2016-12-07] MEDS: Neomycin/Polym/Bacit TOP OINT* 15 GM TOPICAL SCH (09:08)
[2016-12-07] MEDS: LORazepam TAB(*) 1 MG PO PRN ×2 (09:23→15:52)
--- NOTE | 2016-12-07 15:01 | PN ---
Subjective - Subjective Service Type: 60052 Hosp care 15 min low complexity Subjective: Patient noted to be visible in the milieu, appropriately social with staff and select peers. Patient mike been approved for staff pass and has been no behavioral issue. She continues to show improvement in manic symptoms. She expresses more insight in managing / coping with her anxiety and her MH issues. She is more agreeable to her MH dx. She is rapid in speech but demonstrates linear TP. Patient reports improved sleep. She has been med compliant. Patient denies med s /e's. Patient denies SI/HI and AH/VH. Objective - Appearance Appearance: Well Developed/Nourished, Healthy Appearing Dysmorphic Features: No Hygiene: Normal Grooming: Fairly Well Kept - Behavior Psychomotor Activities: Normal Exhibits Abnormal Movement: No - Attitude and Relatedness Attitude and Relatedness: Cooperative Eye Contact: Fair - Speech Quality: Unpressured Latencies: Normal Quantity: Copious - Mood Patient's Decription of Mood: "Okay" - Affect Observed Affect: Fair Affect Consistent with: Euthymia - Thought Process Patient's Thought Process: Coherent Thought Content: No Passive Wish, No Suicidal Planning, No Homicidal Ideation, No Paranoid Ideation - Sensorium Experiencing Hallucinations: No, Sensorium is Clear Type of Hallucinations: Visual: No, Auditory: No, Command: No - Level of Consciousness Level of Consciousness: Alert Orientation: Yes Intact, Yes Orientated to Time, Yes Orientated to Place, Yes Orientated to Person - Impulse Control Impulse Control: Intact - Insight and Judgement Insight and Judgement: Fair - Group Participation Particating in Group Activities: Yes - Medication Management Medication Management Adherence: Yes Assessment - Assessment Merits Inpatient Hospitalization: For Immediate Safety, For Stabilization Inpatient DSM-IV Dx: ASSESSMENT: . 1. Bipolar 1 d/o MRE manic with PFs Plan - Plan Treatment Plan: Name: SHERYL WHITE Birthdate: 1970 [id number] PLAN: ------ 1. Continue admission to [facility] for safety and symptom mx. 2. Poultry Helper has ordered TOO, hearing held 12/05/16. 3. Continue Abilify 10mg po qhs for mood stabilization and psychosis. 4. Continue Colace 200mg po BID patient constipation. Continue Senokot 4 tabs po BID for constipation. She reports benefit to bowel movement on this regimen. 5. Collateral information obtained from son and ex- without sharing with them information of patient's admission. 6. Patient to participate in milieu activities and groups. Medications: Current Medications Acetaminophen (Tylenol Tab*) 650 mg PO Q4H PRN PRN Reason: for pain; or Temp >101 F Al Hydrox/Mg Hydrox/Simethicone (Maalox Plus*) 30 ml PO Q4H PRN PRN Reason: INDIGESTION Last Admin: 11/25/16 14:24 Dose: 30 ml Aripiprazole (Abilify Tab*) 10 mg PO [facility] Last Admin: 12/06/16 20:56 Dose: 10 mg Diphenhydramine HCl (Benadryl Po*) 50 mg PO Q4H PRN PRN Reason: AGITATION/ANXIETY/INSOMNIA Last Admin: 12/07/16 06:51 Dose: 50 mg Docusate Sodium (Colace Cap*) 200 mg PO BID [facility] Last Admin: 12/07/16 09:08 Dose: Not Given Haloperidol (Haldol Tab*) 5 mg PO Q6H PRN PRN Reason: AGITATION/ANXIETY/INSOMNIA Last Admin: 11/30/16 21:32 Dose: 5 mg Lorazepam (Ativan Tab(*)) 2 mg PO Q6H PRN PRN Reason: AGITATION/ANXIETY/INSOMNIA Last Admin: 12/07/16 09:23 Dose: 2 mg Neomycin/Polymyxin/Bacitracin (Neosporin Top Oint Tube*) 1 applic TOPICAL DAILY [facility] Last Admin: 12/07/16 09:08 Dose: 1 applic Omeprazole (Prilosec Cap*) 20 mg PO DAILY@0600 [facility] Last Admin: 12/07/16 06:51 Dose: 20 mg Senna (Senokot Tab*) 4 tab PO BID [facility] - Discharge Plan Discharge Plan: Outpatient Follow Up Outpatient Program: [facility]
[2016-12-07] MEDS: ARIPiprazole TAB* 5 MG PO SCH (21:23)
[2016-12-08] MEDS: Omeprazole CAP* 20 MG PO SCH (06:05)
[2016-12-08] MEDS: Docusate CAP* 100 MG PO SCH ×4 (06:05→21:22)
[2016-12-08] MEDS: diPHENhydraMINE PO* 50 MG PO PRN ×3 (06:05→18:39)
[2016-12-08] MEDS: Senna TAB PO SCH ×4 (06:05→21:22)
[2016-12-08 08:15] LABS: HDL Cholesterol 42.5 mg/dL
[2016-12-08] MEDS: LORazepam TAB(*) 1 MG PO PRN ×2 (08:23→18:37)
[2016-12-08] MEDS: Neomycin/Polym/Bacit TOP OINT* 15 GM TOPICAL SCH (08:23)
--- NOTE | 2016-12-08 12:16 | PN ---
Subjective - Subjective Service Type: 47350 Hosp care 15 min low complexity Subjective: Patient noted again to be visible in the milieu, appropriately social with staff and select peers. 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 She is med compliant. Patient denies med s/e's. Patient denies SI/HI and AH/VH. Sleep and appetite are improved. Objective - Appearance Appearance: Well Developed/Nourished Dysmorphic Features: No Hygiene: Normal Grooming: Fairly Well Kept - Behavior Psychomotor Activities: Normal Exhibits Abnormal Movement: No - Attitude and Relatedness Attitude and Relatedness: Cooperative Eye Contact: Good - Speech Quality: Unpressured Latencies: Normal Quantity: Appropriate - Mood Patient's Decription of Mood: "Anxious" - Affect Observed Affect: Good Affect Consistent with: Euthymia - Thought Process Patient's Thought Process: Coherent Thought Content: No Passive Wish, No Suicidal Planning, No Homicidal Ideation, No Paranoid Ideation - Sensorium Experiencing Hallucinations: No, Sensorium is Clear Type of Hallucinations: Visual: No, Auditory: No, Command: No - Level of Consciousness Level of Consciousness: Alert Orientation: Yes Intact, Yes Orientated to Time, Yes Orientated to Place, Yes Orientated to Person - Impulse Control Impulse Control: Intact - Insight and Judgement Insight and Judgement: Fair - Group Participation Particating in Group Activities: Yes - Medication Management Medication Management Adherence: Yes Assessment - Assessment Merits Inpatient Hospitalization: For Immediate Safety, For Stabilization Inpatient DSM-IV Dx: ASSESSMENT: . 1. Bipolar 1 d/o MRE manic with PFs Plan - Plan Treatment Plan: Name: SHERYL WHITE Birthdate: 1970 [id number] PLAN: ------ 1. Continue admission to [facility] for safety and symptom mx. 2. Ammunition Assembly Ii Laborer has ordered TOO, hearing held 12/05/16. 3. Continue Abilify 10mg po qhs for mood stabilization and psychosis. 4. Continue Colace 200mg po BID patient constipation. Continue Senokot 4 tabs po BID for constipation. She reports benefit to bowel movement on this regimen. 5. Discharge planning on Sunday. 6. Collateral information obtained from son and ex- without sharing with them information of patient's admission. 7. Patient to participate in milieu activities and groups. Medications: Current Medications Acetaminophen (Tylenol Tab*) 650 mg PO Q4H PRN PRN Reason: for pain; or Temp >101 F Al Hydrox/Mg Hydrox/Simethicone (Maalox Plus*) 30 ml PO Q4H PRN PRN Reason: INDIGESTION Last Admin: 11/25/16 14:24 Dose: 30 ml Aripiprazole (Abilify Tab*) 10 mg PO BEDTIME [facility] Last Admin: 12/07/16 21:23 Dose: 10 mg Diphenhydramine HCl (Benadryl Po*) 50 mg PO Q4H PRN PRN Reason: AGITATION/ANXIETY/INSOMNIA Last Admin: 12/08/16 11:57 Dose: 50 mg Docusate Sodium (Colace Cap*) 200 mg PO BID [facility] Last Admin: 12/08/16 08:25 Dose: Not Given Haloperidol (Haldol Tab*) 5 mg PO Q6H PRN PRN Reason: AGITATION/ANXIETY/INSOMNIA Last Admin: 11/30/16 21:32 Dose: 5 mg Lorazepam (Ativan Tab(*)) 2 mg PO Q6H PRN PRN Reason: AGITATION/ANXIETY/INSOMNIA Last Admin: 12/08/16 08:23 Dose: 2 mg Neomycin/Polymyxin/Bacitracin (Neosporin Top Oint Tube*) 1 applic TOPICAL DAILY [facility] Last Admin: 12/08/16 08:23 Dose: 1 applic Omeprazole (Prilosec Cap*) 20 mg PO DAILY@0600 [facility] Last Admin: 12/08/16 06:05 Dose: 20 mg Senna (Senokot Tab*) 4 tab PO BID [facility] Last Admin: 12/08/16 08:25 Dose: Not Given - Discharge Plan Discharge Plan: Outpatient Follow Up Outpatient Program: [facility]
[2016-12-08] MEDS: ARIPiprazole TAB* 5 MG PO SCH ×2 (18:38→21:22)
[2016-12-09] MEDS: diPHENhydraMINE PO* 50 MG PO PRN ×3 (04:10→17:53)
[2016-12-09] MEDS: Omeprazole CAP* 20 MG PO SCH (06:00)
[2016-12-09] MEDS: Docusate CAP* 100 MG PO SCH ×4 (06:51→19:37)
[2016-12-09] MEDS: Senna TAB PO SCH ×4 (06:51→19:37)
[2016-12-09] MEDS: LORazepam TAB(*) 1 MG PO PRN ×2 (06:52→17:54)
[2016-12-09] MEDS: Neomycin/Polym/Bacit TOP OINT* 15 GM TOPICAL SCH (10:14)
[2016-12-09] MEDS: ARIPiprazole TAB* 5 MG PO SCH ×2 (17:53→19:37)
[2016-12-10] MEDS: Senna TAB PO SCH ×2 (07:39→20:33)
[2016-12-10] MEDS: diPHENhydraMINE PO* 50 MG PO PRN ×3 (07:39→18:21)
[2016-12-10] MEDS: Omeprazole CAP* 20 MG PO SCH (07:39)
[2016-12-10] MEDS: LORazepam TAB(*) 1 MG PO PRN ×2 (07:40→18:21)
[2016-12-10] MEDS: Docusate CAP* 100 MG PO SCH ×2 (07:40→20:34)
[2016-12-10] MEDS: Neomycin/Polym/Bacit TOP OINT* 15 GM TOPICAL SCH (07:41)
[2016-12-10] MEDS: ARIPiprazole TAB* 5 MG PO SCH (20:33)
[2016-12-11] MEDS: LORazepam TAB(*) 1 MG PO PRN (02:21)
[2016-12-11] MEDS: diPHENhydraMINE PO* 50 MG PO PRN ×3 (02:22→22:02)
[2016-12-11] MEDS: Senna TAB PO SCH ×2 (08:36→22:02)
[2016-12-11] MEDS: Omeprazole CAP* 20 MG PO SCH (08:38)
[2016-12-11] MEDS: Docusate CAP* 100 MG PO SCH ×2 (08:38→22:22)
[2016-12-11] MEDS: Neomycin/Polym/Bacit TOP OINT* 15 GM TOPICAL SCH (08:38)
--- NOTE | 2016-12-11 12:46 | PN ---
Subjective - Subjective Service Type: [id number] Hosp care 15 min low complexity Subjective: Patient overtalkative and pacing. Staff reports she is overutilizing phone privileges in the comfort room and that other peers are getting upset that they cannot have similar privileges. The patient is adherent with medications and less intrusive than previously noted on the unit. She denies SI or HI. Objective - Appearance Appearance: Well Developed/Nourished Dysmorphic Features: No Hygiene: Normal Grooming: Well Kept - Behavior Psychomotor Activities: Abnormal-Increased Exhibits Abnormal Movement: No - Attitude and Relatedness Attitude and Relatedness: Needy Eye Contact: Good - Speech Quality: Pressured Latencies: Short Quantity: Copious - Mood Patient's Decription of Mood: "Good" - Affect Observed Affect: Euphoric Affect Consistent with: Euphoria - Thought Process Patient's Thought Process: Tangential Thought Content: Yes Paranoid Ideation, No Passive Wish, No Suicidal Planning, No Homicidal Ideation - Sensorium Experiencing Hallucinations: No, Sensorium is Clear Type of Hallucinations: Visual: No, Auditory: No, Command: No - Level of Consciousness Level of Consciousness: Alert Orientation: Yes Intact, Yes Orientated to Time, Yes Orientated to Place, Yes Orientated to Person - Impulse Control Impulse Control: Poor - Insight and Judgement Insight and Judgement: Impaired - Group Participation Particating in Group Activities: No - Medication Management Medication Management Adherence: Yes Assessment - Assessment Merits Inpatient Hospitalization: For Immediate Safety, For Stabilization Inpatient DSM-IV Dx: ASSESSMENT: . 1. Bipolar 1 d/o MRE manic with PFs Clinical Impression: 46 y.o. single, [place] immigrant, female with a history of bipolar disorder admitted involuntarily due to agitated, disruptive and manic behaviors in the community. Plan - Plan Treatment Plan: Name: SHERYL CHAVEZ Birthdate: 1970 [id number] Continue aripiprazole therapy. Will discontinue comfort room phone privileges until patient can follow up with Dr. Guevara. Continue inpatient stabilization. Continued Medication Management: Start Medication Medications: Current Medications Acetaminophen (Tylenol Tab*) 650 mg PO Q4H PRN PRN Reason: for pain; or Temp >101 F Al Hydrox/Mg Hydrox/Simethicone (Maalox Plus*) 30 ml PO Q4H PRN PRN Reason: INDIGESTION Last Admin: 11/25/16 14:24 Dose: 30 ml Aripiprazole (Abilify Tab*) 10 mg PO BEDTIME [facility] Last Admin: 12/10/16 20:33 Dose: 10 mg Diphenhydramine HCl (Benadryl Po*) 50 mg PO Q4H PRN PRN Reason: AGITATION/ANXIETY/INSOMNIA Last Admin: 12/11/16 08:40 Dose: 50 mg Docusate Sodium (Colace Cap*) 200 mg PO BID [facility] Last Admin: 12/11/16 08:38 Dose: 200 mg Haloperidol (Haldol Tab*) 5 mg PO Q6H PRN PRN Reason: AGITATION/ANXIETY/INSOMNIA Last Admin: 11/30/16 21:32 Dose: 5 mg Neomycin/Polymyxin/Bacitracin (Neosporin Top Oint Tube*) 1 applic TOPICAL DAILY [facility] Last Admin: 12/11/16 08:38 Dose: 1 applic Omeprazole (Prilosec Cap*) 20 mg PO DAILY@0600 [facility] Last Admin: 12/11/16 08:38 Dose: 20 mg Senna (Senokot Tab*) 4 tab PO BID [facility] Last Admin: 12/11/16 08:36 Dose: 4 tab - Discharge Plan Discharge Plan: Inpatient Hospitalization
[2016-12-11] MEDS: Haloperidol TAB* 5 MG PO PRN (22:02)
[2016-12-11] MEDS: ARIPiprazole TAB* 5 MG PO SCH (22:02)
[2016-12-12] MEDS: Senna TAB PO SCH ×3 (06:55→20:03)
[2016-12-12] MEDS: Omeprazole CAP* 20 MG PO SCH (06:55)
[2016-12-12] MEDS: diPHENhydraMINE PO* 50 MG PO PRN (06:55)
[2016-12-12] MEDS: Docusate CAP* 100 MG PO SCH ×3 (06:55→20:02)
[2016-12-12] MEDS: Neomycin/Polym/Bacit TOP OINT* 15 GM TOPICAL SCH (10:34)
[2016-12-12] MEDS ORDERED: LORazepam TAB(*) 1 MG PO ONE (11:00)
--- NOTE | 2016-12-12 15:05 | PN ---
Subjective - Subjective Subjective: Patient continues to improve symptomatically in regard to manic symptoms displayed on admission. Patient has been med compliant since TOO hearing. Patient reporting increase anxiety and sense of agitation over the weekend. Patient does report being upset by the suicide attempt of a peer yesterday. Patient reports also poor sleep. Patient again displays an intense gaze and is more rapid in speech. Patient denies other issues. Patient amenable to D/C of Abilify and initiation of Haldol. She denies SI/HI and AH/VH. Objective - Appearance Appearance: Well Developed/Nourished Dysmorphic Features: No Hygiene: Normal Grooming: Well Kept - Behavior Psychomotor Activities: Normal Exhibits Abnormal Movement: No - Attitude and Relatedness Attitude and Relatedness: Cooperative Eye Contact: Good - Speech Quality: Unpressured Latencies: Short Quantity: Copious - Mood Patient's Decription of Mood: "Anxious" - Affect Observed Affect: Tense Affect Consistent with: Euthymia - Thought Process Patient's Thought Process: Filght of Ideas Thought Content: No Passive Wish, No Suicidal Planning, No Homicidal Ideation, No Paranoid Ideation - Sensorium Experiencing Hallucinations: No, Sensorium is Clear Type of Hallucinations: Visual: No, Auditory: No, Command: No - Level of Consciousness Level of Consciousness: Alert Orientation: Yes Intact, Yes Orientated to Time, Yes Orientated to Place, Yes Orientated to Person - Impulse Control Impulse Control: Intact - Insight and Judgement Insight and Judgement: Fair - Group Participation Particating in Group Activities: No - Medication Management Medication Management Adherence: Yes Assessment - Assessment Merits Inpatient Hospitalization: For Immediate Safety, For Stabilization Inpatient DSM-IV Dx: ASSESSMENT: . 1. Bipolar 1 d/o MRE manic with PFs Plan - Plan Treatment Plan: Name: SHERYL WHITE Birthdate: 1970 [id number] PLAN: ------ 1. Continue admission to [facility] for safety and symptom mx. 2. Computer Art Instructor has ordered TOO, hearing held 12/05/16. 3. D/C Abilify due to patient report of increased anxiety r/o akithisia. 4. Start Haldol 10mg po qhs for mood stabilization and psychosis. 5. Continue Colace 200mg po BID patient constipation. Continue Senokot 4 tabs po BID for constipation. She reports benefit to bowel movement on this regimen. 6. Discharge planning for a tentative Sunday12/18/16 discharge. 7. Patient has found an apartment to move into at discharge which is furnished. 8. Collateral information obtained from son and ex- without sharing with them information of patient's admission. 9. Patient to participate in milieu activities and groups. Medications: Current Medications Acetaminophen (Tylenol Tab*) 650 mg PO Q4H PRN PRN Reason: for pain; or Temp >101 F Last Admin: 12/12/16 11:20 Dose: 650 mg Al Hydrox/Mg Hydrox/Simethicone (Maalox Plus*) 30 ml PO Q4H PRN PRN Reason: INDIGESTION Last Admin: 11/25/16 14:24 Dose: 30 ml Diphenhydramine HCl (Benadryl Po*) 50 mg PO Q4H PRN PRN Reason: AGITATION/ANXIETY/INSOMNIA Last Admin: 12/12/16 06:55 Dose: 50 mg Docusate Sodium (Colace Cap*) 200 mg PO BID [facility] Last Admin: 12/12/16 10:34 Dose: Not Given Haloperidol (Haldol Tab*) 5 mg PO Q6H PRN PRN Reason: AGITATION/ANXIETY/INSOMNIA Last Admin: 11/30/16 21:32 Dose: 5 mg Haloperidol (Haldol Tab*) 10 mg PO BEDTIME [facility] Neomycin/Polymyxin/Bacitracin (Neosporin Top Oint Tube*) 1 applic TOPICAL DAILY [facility] Last Admin: 12/12/16 10:34 Dose: Not Given Omeprazole (Prilosec Cap*) 20 mg PO DAILY@0600 [facility] Last Admin: 12/12/16 06:55 Dose: 20 mg Senna (Senokot Tab*) 4 tab PO BID [facility] Last Admin: 12/12/16 10:34 Dose: Not Given - Discharge Plan Discharge Plan: Outpatient Follow Up Outpatient Program: [facility]
[2016-12-12] MEDS ORDERED: Haloperidol TAB* 10 MG PO SCH (21:00)
[2016-12-13] MEDS: Omeprazole CAP* 20 MG PO SCH (07:44)
[2016-12-13] MEDS: Senna TAB PO SCH ×2 (07:44→20:04)
[2016-12-13] MEDS: Docusate CAP* 100 MG PO SCH ×2 (07:45→20:04)
[2016-12-13] MEDS: Neomycin/Polym/Bacit TOP OINT* 15 GM TOPICAL SCH (07:46)
[2016-12-13] MEDS ORDERED: LORazepam TAB(*) 1 MG PO SCH (12:00)
--- NOTE | 2016-12-13 13:43 | PN ---
Subjective - Subjective Service Type: 92522 Hosp care 15 min low complexity Subjective: Patient reports good sleep on 1st dose of Haldol 10mg last night. Abilify was discontinued after patient reported increased anxiety agitation since compliance was court ordered late last week. Today, patient's affect is full and much calmer. She reports some dizziness upon standing. Patient informed team will monitor her BP. Patient educated her body will likely adjust to the new med after 3-4 nights use. She shows no manic symptoms today. She is attending groups. She is appropriate in behavior and in her conversations on the unit. Patient reports benefit from staff pass and comfort room. She signed a 9month lease on a furnished apartment yesterday. Objective - Appearance Appearance: Well Developed/Nourished Dysmorphic Features: No Hygiene: Normal Grooming: Fairly Well Kept - Behavior Psychomotor Activities: Normal Exhibits Abnormal Movement: No - Attitude and Relatedness Attitude and Relatedness: Cooperative Eye Contact: Good - Speech Quality: Unpressured Latencies: Normal Quantity: Copious - Mood Patient's Decription of Mood: "Good" - Affect Observed Affect: Fair Affect Consistent with: Euthymia - Thought Process Patient's Thought Process: Coherent Thought Content: No Passive Wish, No Suicidal Planning, No Homicidal Ideation, No Paranoid Ideation - Sensorium Experiencing Hallucinations: No, Sensorium is Clear Type of Hallucinations: Visual: No, Auditory: No, Command: No - Level of Consciousness Level of Consciousness: Alert Orientation: Yes Intact, Yes Orientated to Time, Yes Orientated to Place, Yes Orientated to Person - Impulse Control Impulse Control: Intact - Insight and Judgement Insight and Judgement: Fair - Group Participation Particating in Group Activities: Yes - Medication Management Medication Management Adherence: Yes Assessment - Assessment Merits Inpatient Hospitalization: For Immediate Safety, For Stabilization Inpatient DSM-IV Dx: ASSESSMENT: . 1. Bipolar 1 d/o MRE manic with PFs Plan - Plan Treatment Plan: Name: SHERYL WHITE Birthdate: 1970 [id number] PLAN: ------ 1. Continue admission to [facility] for safety and symptom mx. 2. Conference Translator has ordered TOO, hearing held 12/05/16. 3. D/C Abilify due to patient report of increased anxiety r/o akithisia. 4. Continue Haldol 10mg po qhs for mood stabilization and psychosis. 5. Continue Colace 200mg po BID patient constipation. Continue Senokot 4 tabs po BID for constipation. She reports benefit to bowel movement on this regimen. 6. Discharge planning for a tentative Sunday12/18/16 discharge. 7. Patient has found an apartment to move into upon discharge which is furnished. 8. Collateral information obtained from son and ex- without sharing with them information of patient's admission. 9. Patient to participate in milieu activities and groups. Continued Medication Management: Different Medication Medications: Current Medications Acetaminophen (Tylenol Tab*) 650 mg PO Q4H PRN PRN Reason: for pain; or Temp >101 F Last Admin: 12/12/16 11:20 Dose: 650 mg Al Hydrox/Mg Hydrox/Simethicone (Maalox Plus*) 30 ml PO Q4H PRN PRN Reason: INDIGESTION Last Admin: 11/25/16 14:24 Dose: 30 ml Diphenhydramine HCl (Benadryl Po*) 50 mg PO Q4H PRN PRN Reason: AGITATION/ANXIETY/INSOMNIA Last Admin: 12/12/16 06:55 Dose: 50 mg Docusate Sodium (Colace Cap*) 200 mg PO BID [facility] Last Admin: 12/13/16 07:45 Dose: 200 mg Haloperidol (Haldol Tab*) 5 mg PO Q6H PRN PRN Reason: AGITATION/ANXIETY/INSOMNIA Last Admin: 11/30/16 21:32 Dose: 5 mg Haloperidol (Haldol Tab*) 10 mg PO BEDTIME [facility] Last Admin: 12/12/16 20:03 Dose: 10 mg Lorazepam (Ativan Tab(*)) 1 mg PO DAILY@1200 [facility] Last Admin: 12/13/16 11:30 Dose: 1 mg Neomycin/Polymyxin/Bacitracin (Neosporin Top Oint Tube*) 1 applic TOPICAL DAILY [facility] Last Admin: 12/13/16 07:46 Dose: 1 applic Omeprazole (Prilosec Cap*) 20 mg PO DAILY@0600 [facility] Last Admin: 12/13/16 07:44 Dose: 20 mg Senna (Senokot Tab*) 4 tab PO BID [facility] Last Admin: 12/13/16 07:44 Dose: 4 tab - Discharge Plan Discharge Plan: Outpatient Follow Up Outpatient Program: [facility]
[2016-12-13] MEDS: Haloperidol TAB* 10 MG PO SCH (20:04)
[2016-12-13] MEDS: LORazepam TAB(*) 1 MG PO SCH (20:04)
[2016-12-13 20:07] VITALS: BP 116/78
[2016-12-14] MEDS: Omeprazole CAP* 20 MG PO SCH (08:45)
[2016-12-14] MEDS: Senna TAB PO SCH ×2 (08:45→20:24)
[2016-12-14] MEDS: Neomycin/Polym/Bacit TOP OINT* 15 GM TOPICAL SCH (08:45)
[2016-12-14] MEDS: Docusate CAP* 100 MG PO SCH ×2 (08:45→20:25)
--- NOTE | 2016-12-14 10:12 | PN ---
Subjective - Subjective Service Type: [id number] Hosp care 15 min low complexity Subjective: Patient visible in the milieu, social, pleasant, and participating in milieu activities and groups. Patient noted to have good benefit to manic symptoms on Haldol. Patient reports ongoing sedation, but reports no further light headedness or dizziness. Patient reports she has changed plans regarding discharge disposition. Patient reports she has decided to return to [place], [place] and obtain her own apt. there instead of staying in [place]. Patient reports her ex- will be flying in on Sunday to help her pack her belonging, drive her car to [place], and move in to her new apt. Patient amenable to continuing on Haldol at 10mg po qhs, but was informed if sedation continues and is intolerable, this provider will decrease dose to 7.5mg po qhs tomorrow. Patient is appropriate in behavior and in her conversations on the unit. Patient reports benefit from staff pass and comfort room. She denies SI/HI and AH/VH. Objective - Appearance Appearance: Well Developed/Nourished Dysmorphic Features: No Hygiene: Normal Grooming: Fairly Well Kept - Behavior Psychomotor Activities: Normal Exhibits Abnormal Movement: No - Attitude and Relatedness Attitude and Relatedness: Cooperative Eye Contact: Fair - Speech Quality: Unpressured Latencies: Normal Quantity: Appropriate - Mood Patient's Decription of Mood: "Fine" - Affect Observed Affect: Fair Affect Consistent with: Euthymia - Thought Process Patient's Thought Process: Coherent Thought Content: No Passive Wish, No Suicidal Planning, No Homicidal Ideation, No Paranoid Ideation - Sensorium Experiencing Hallucinations: No, Sensorium is Clear Type of Hallucinations: Visual: No, Auditory: No, Command: No - Level of Consciousness Level of Consciousness: Alert Orientation: Yes Intact, Yes Orientated to Time, Yes Orientated to Place, Yes Orientated to Person - Impulse Control Impulse Control: Intact - Insight and Judgement Insight and Judgement: Fair - Group Participation Particating in Group Activities: Yes - Medication Management Medication Management Adherence: Yes Assessment - Assessment Merits Inpatient Hospitalization: For Immediate Safety, For Stabilization Inpatient DSM-IV Dx: ASSESSMENT: . 1. Bipolar 1 d/o MRE manic with PFs Plan - Plan Treatment Plan: Name: SHERYL WHITE Birthdate: 1970 [id number] PLAN: ------ 1. Continue admission to [facility] for safety and symptom mx. 2. S[employer] Hana Architect has ordered TOO, hearing held 12/05/16. 3. D/C Abilify due to patient report of increased anxiety r/o akithisia. 4. Continue Haldol 10mg po qhs for mood stabilization and psychosis. 5. Continue Colace 200mg po BID patient constipation. Continue Senokot 4 tabs po BID for constipation. She reports benefit to bowel movement on this regimen. 6. Discharge planning for a tentative Sunday12/18/16 discharge. 7. Patient has found an apartment to move into upon discharge which is furnished. 8. Collateral information obtained from son and ex- without sharing with them information of patient's admission. 9. Patient to participate in milieu activities and groups. Medications: Current Medications Acetaminophen (Tylenol Tab*) 650 mg PO Q4H PRN PRN Reason: for pain; or Temp >101 F Last Admin: 12/12/16 11:20 Dose: 650 mg Al Hydrox/Mg Hydrox/Simethicone (Maalox Plus*) 30 ml PO Q4H PRN PRN Reason: INDIGESTION Last Admin: 11/25/16 14:24 Dose: 30 ml Diphenhydramine HCl (Benadryl Po*) 50 mg PO Q4H PRN PRN Reason: AGITATION/ANXIETY/INSOMNIA Last Admin: 12/12/16 06:55 Dose: 50 mg Docusate Sodium (Colace Cap*) 200 mg PO BID [facility] Last Admin: 12/14/16 08:45 Dose: 200 mg Haloperidol (Haldol Tab*) 5 mg PO Q6H PRN PRN Reason: AGITATION/ANXIETY/INSOMNIA Last Admin: 11/30/16 21:32 Dose: 5 mg Haloperidol (Haldol Tab*) 10 mg PO DAILY@1999 [facility] Last Admin: 12/13/16 20:04 Dose: 10 mg Lorazepam (Ativan Tab(*)) 1 mg PO DAILY@1999 [facility] Last Admin: 12/13/16 20:04 Dose: 1 mg Neomycin/Polymyxin/Bacitracin (Neosporin Top Oint Tube*) 1 applic TOPICAL DAILY [facility] Last Admin: 12/14/16 08:45 Dose: 1 applic Omeprazole (Prilosec Cap*) 20 mg PO DAILY@0600 [facility] Last Admin: 12/14/16 08:45 Dose: 20 mg Senna (Senokot Tab*) 4 tab PO BID [facility] Last Admin: 12/14/16 08:45 Dose: 4 tab - Discharge Plan Discharge Plan: Outpatient Follow Up
[2016-12-14] MEDS: Haloperidol TAB* 10 MG PO SCH (20:24)
[2016-12-14] MEDS: LORazepam TAB(*) 1 MG PO SCH (20:24)
[2016-12-15] MEDS: Senna TAB PO SCH ×2 (08:31→20:22)
[2016-12-15] MEDS: Omeprazole CAP* 20 MG PO SCH (08:31)
[2016-12-15] MEDS: Docusate CAP* 100 MG PO SCH ×2 (08:31→20:21)
[2016-12-15] MEDS: Neomycin/Polym/Bacit TOP OINT* 15 GM TOPICAL SCH (08:32)
--- NOTE | 2016-12-15 13:20 | PN ---
Subjective - Subjective Service Type: [id number] Hosp care 15 min low complexity Subjective: Patient visible in the milieu, social, pleasant, and participating in milieu activities and groups. Patient noted to have good benefit to manic symptoms on Haldol. Patient is appropriate in behavior and in her conversations on the unit. Patient reports good sleep and appetite. She denies SI/HI and AH/VH. Objective - Appearance Appearance: Well Developed/Nourished Dysmorphic Features: No Hygiene: Normal Grooming: Fairly Well Kept - Behavior Psychomotor Activities: Normal Exhibits Abnormal Movement: No - Attitude and Relatedness Attitude and Relatedness: Cooperative Eye Contact: Good - Speech Quality: Unpressured Latencies: Normal Quantity: Appropriate - Mood Patient's Decription of Mood: "Good" - Affect Observed Affect: Fair Affect Consistent with: Euthymia - Thought Process Patient's Thought Process: Coherent Thought Content: No Passive Wish, No Suicidal Planning, No Homicidal Ideation, No Paranoid Ideation - Sensorium Experiencing Hallucinations: No, Sensorium is Clear Type of Hallucinations: Visual: No, Auditory: No, Command: No - Level of Consciousness Level of Consciousness: Alert Orientation: Yes Intact, Yes Orientated to Time, Yes Orientated to Place, Yes Orientated to Person - Impulse Control Impulse Control: Intact - Insight and Judgement Insight and Judgement: Fair - Group Participation Particating in Group Activities: Yes - Medication Management Medication Management Adherence: Yes Assessment - Assessment Merits Inpatient Hospitalization: For Immediate Safety, For Stabilization Inpatient DSM-IV Dx: ASSESSMENT: . 1. Bipolar 1 d/o MRE manic with PFs Plan - Plan Treatment Plan: Name: SHERYL WHITE Birthdate: 1970 [id number] PLAN: ------ 1. Continue admission to [facility] for safety and symptom mx. 2. Center Machine Operator has ordered TOO, hearing held 12/05/16. 3. D/C Abilify due to patient report of increased anxiety r/o akithisia. 4. Continue Haldol 10mg po qhs for mood stabilization and psychosis. 5. Continue Colace 200mg po BID patient constipation. Continue Senokot 4 tabs po BID for constipation. She reports benefit to bowel movement on this regimen. 6. Discharge planning for a tentative Sunday12/19/16 discharge. 7. Patient has found an apartment to move into upon discharge which is furnished. 8. Collateral information obtained from son and ex- without sharing with them information of patient's admission. 9. Patient to participate in milieu activities and groups. Medications: Current Medications Acetaminophen (Tylenol Tab*) 650 mg PO Q4H PRN PRN Reason: for pain; or Temp >101 F Last Admin: 12/12/16 11:20 Dose: 650 mg Al Hydrox/Mg Hydrox/Simethicone (Maalox Plus*) 30 ml PO Q4H PRN PRN Reason: INDIGESTION Last Admin: 11/25/16 14:24 Dose: 30 ml Diphenhydramine HCl (Benadryl Po*) 50 mg PO Q4H PRN PRN Reason: AGITATION/ANXIETY/INSOMNIA Last Admin: 12/12/16 06:55 Dose: 50 mg Docusate Sodium (Colace Cap*) 200 mg PO BID [facility] Last Admin: 12/15/16 08:31 Dose: 200 mg Haloperidol (Haldol Tab*) 5 mg PO Q6H PRN PRN Reason: AGITATION/ANXIETY/INSOMNIA Last Admin: 11/30/16 21:32 Dose: 5 mg Haloperidol (Haldol Tab*) 10 mg PO DAILY@1999 [facility] Last Admin: 12/14/16 20:24 Dose: 10 mg Lorazepam (Ativan Tab(*)) 1 mg PO DAILY@1999 [facility] Last Admin: 12/14/16 20:24 Dose: 1 mg Neomycin/Polymyxin/Bacitracin (Neosporin Top Oint Tube*) 1 applic TOPICAL DAILY [facility] Last Admin: 12/15/16 08:32 Dose: 1 applic Omeprazole (Prilosec Cap*) 20 mg PO DAILY@0600 [facility] Last Admin: 12/15/16 08:31 Dose: 20 mg Senna (Senokot Tab*) 4 tab PO BID [facility] Last Admin: 12/15/16 08:31 Dose: 4 tab
[2016-12-15] MEDS: LORazepam TAB(*) 1 MG PO SCH (20:19)
[2016-12-15] MEDS: Haloperidol TAB* 5 MG PO SCH (20:20)
[2016-12-16] MEDS: Omeprazole CAP* 20 MG PO SCH (10:08)
[2016-12-16] MEDS: Senna TAB PO SCH ×2 (10:09→19:47)
[2016-12-16] MEDS: Neomycin/Polym/Bacit TOP OINT* 15 GM TOPICAL SCH (10:09)
[2016-12-16] MEDS: Docusate CAP* 100 MG PO SCH ×2 (13:29→19:47)
[2016-12-16] MEDS: LORazepam TAB(*) 1 MG PO SCH (19:46)
[2016-12-16] MEDS: Haloperidol TAB* 5 MG PO SCH (19:47)
[2016-12-17] MEDS: Neomycin/Polym/Bacit TOP OINT* 15 GM TOPICAL SCH (07:44)
[2016-12-17] MEDS: Senna TAB PO SCH ×2 (07:46→20:39)
[2016-12-17] MEDS: Omeprazole CAP* 20 MG PO SCH (07:47)
[2016-12-17] MEDS: Docusate CAP* 100 MG PO SCH ×2 (07:47→20:40)
[2016-12-17] MEDS: Haloperidol TAB* 5 MG PO SCH (20:35)
[2016-12-17] MEDS: LORazepam TAB(*) 1 MG PO SCH (20:39)
[2016-12-18] MEDS: Omeprazole CAP* 20 MG PO SCH (09:41)
[2016-12-18] MEDS: Senna TAB PO SCH ×2 (09:44→20:03)
[2016-12-18] MEDS: Docusate CAP* 100 MG PO SCH ×2 (09:44→20:02)
[2016-12-18] MEDS: Neomycin/Polym/Bacit TOP OINT* 15 GM TOPICAL SCH (09:44)
--- NOTE | 2016-12-18 10:14 | PN ---
Subjective - Subjective Service Type: [id number] Hosp care 15 min low complexity Subjective: Patient noted to be doing well over the weekend. She continues to display no manic symptoms. She has been visible in the milieu, calm, cooperative, and participating in groups. Patient noted to be bradykinetic and displaying a mild tremor. Patient reports she had noticed her slower gait. She reports also feeling a "need to keep walking". She reports it is very hard for her to concentrate while sitting, but she can focus while walking. Patient amenable to 1x dose of Cogentin 2mg po and Cogentin 1mg po daily qhs for eps. Patient reports good sleep and appetite. She reports no other issues. She continues to be med compliant. She feels ready for discharge. She denies paranoia, persecutory ideations, and she denies SI/HI and AH/VH. Objective - Appearance Appearance: Well Developed/Nourished Dysmorphic Features: No Hygiene: Normal Grooming: Well Kept - Behavior Psychomotor Activities: Abnormal-Decreased Exhibits Abnormal Movement: Yes - Attitude and Relatedness Attitude and Relatedness: Cooperative Eye Contact: Good - Speech Quality: Unpressured Latencies: Normal Quantity: Appropriate - Mood Patient's Decription of Mood: "Good" - Affect Observed Affect: Fair Affect Consistent with: Euthymia - Thought Process Patient's Thought Process: Coherent Thought Content: No Passive Wish, No Suicidal Planning, No Homicidal Ideation, No Paranoid Ideation - Sensorium Experiencing Hallucinations: No, Sensorium is Clear Type of Hallucinations: Visual: No, Auditory: No, Command: No - Level of Consciousness Level of Consciousness: Alert Orientation: Yes Intact, Yes Orientated to Time, Yes Orientated to Place, Yes Orientated to Person - Impulse Control Impulse Control: Intact - Insight and Judgement Insight and Judgement: Fair - Group Participation Particating in Group Activities: Yes - Medication Management Medication Management Adherence: Yes Assessment - Assessment Merits Inpatient Hospitalization: For Immediate Safety, For Stabilization Inpatient DSM-IV Dx: ASSESSMENT: . 1. Bipolar 1 d/o MRE manic with PFs Plan - Plan Treatment Plan: Name: SHERYL WHITE Birthdate: 1970 [id number] PLAN: ------ 1. Continue admission to [facility] for safety and symptom mx. 2. Enrollment Representative has ordered TOO, hearing held 9/19/17. 3. D/C Abilify due to patient report of increased anxiety r/o akithisia. 4. Decrease Haldol from 7.5mg to 5mg po qhs for mood stabilization and psychosis , due to parkinsonism s/e noted. 5. Cogentin 2mg po x1 NOW and 1mg po daily qhs for eps. 6. Continue Colace 200mg po BID patient constipation. Continue Senokot 4 tabs po BID for constipation. She reports benefit to bowel movement on this regimen. 7. Discharge planning for a tentative Sunday12/19/16 discharge. 8. Patient has found an apartment to move into upon discharge which is furnished. 9. Collateral information obtained from son and ex- without sharing with them information of patient's admission. 10. Patient to participate in milieu activities and groups. Continued Medication Management: Different Medication Medications: Current Medications Acetaminophen (Tylenol Tab*) 650 mg PO Q4H PRN PRN Reason: for pain; or Temp >101 F Last Admin: 12/12/16 11:20 Dose: 650 mg Al Hydrox/Mg Hydrox/Simethicone (Maalox Plus*) 30 ml PO Q4H PRN PRN Reason: INDIGESTION Last Admin: 11/25/16 14:24 Dose: 30 ml Diphenhydramine HCl (Benadryl Po*) 50 mg PO Q4H PRN PRN Reason: AGITATION/ANXIETY/INSOMNIA Last Admin: 12/12/16 06:55 Dose: 50 mg Docusate Sodium (Colace Cap*) 200 mg PO BID [facility] Last Admin: 12/18/16 09:44 Dose: Not Given Haloperidol (Haldol Tab*) 5 mg PO Q6H PRN PRN Reason: AGITATION/ANXIETY/INSOMNIA Last Admin: 11/30/16 21:32 Dose: 5 mg Haloperidol (Haldol Tab*) 7.5 mg PO DAILY@1999 [facility] Last Admin: 12/17/16 20:35 Dose: 7.5 mg Lorazepam (Ativan Tab(*)) 1 mg PO DAILY@1999 [facility] Last Admin: 12/17/16 20:39 Dose: 1 mg Neomycin/Polymyxin/Bacitracin (Neosporin Top Oint Tube*) 1 applic TOPICAL DAILY [facility] Last Admin: 12/18/16 09:44 Dose: Not Given Omeprazole (Prilosec Cap*) 20 mg PO DAILY@0600 [facility] Last Admin: 12/18/16 09:41 Dose: 20 mg Senna (Senokot Tab*) 4 tab PO BID [facility] Last Admin: 12/18/16 09:44 Dose: Not Given - Discharge Plan Discharge Plan: Outpatient Follow Up Additional Comments: Patient will f/u with previous PCP and provider in [place], [place].
[2016-12-18] MEDS ORDERED: Benztropine TAB* 2 MG PO ONE (12:37)
[2016-12-18] MEDS ORDERED: Benztropine TAB* 1 MG PO SCH (20:00)
[2016-12-18] MEDS ORDERED: Haloperidol TAB* 5 MG PO SCH (20:00)
[2016-12-18] MEDS: LORazepam TAB(*) 1 MG PO SCH (20:04)
[2016-12-19] MEDS: Docusate CAP* 100 MG PO SCH (08:34)
[2016-12-19] MEDS: Omeprazole CAP* 20 MG PO SCH (08:34)
[2016-12-19] MEDS: Senna TAB PO SCH (08:34)
[2016-12-19] MEDS: Neomycin/Polym/Bacit TOP OINT* 15 GM TOPICAL SCH (08:35)
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
== END 2016-12-19 14:10 | disposition home or self-care (01) | DRG 753 ==
LOC: ED 00:18 → BSU 12:14
PROVIDERS: ADMIT Psychiatry & Neurology Psychiatry; ATTEND Psychiatry & Neurology Psychiatry
PROC: GZHZZZZ Group Psychotherapy (ICD-10-PCS; principal; 2016-11-23)
DX: F31.2 Bipolar disorder, current episode manic severe with psychotic features (principal); G20 Parkinson's disease; K59.00 Constipation, unspecified; F41.9 Anxiety disorder, unspecified; G47.00 Insomnia, unspecified; F43.10 Post-traumatic stress disorder, unspecified; Z91.410 Personal history of adult physical and sexual abuse; Z91.14 Patient's other noncompliance with medication regimen
CPT/HCPCS: 36415; 80053; 80061; 80307; 80320; 80329; 81003; 81015; 83036; 84443; 84702; 85025; 87086; 90853; 99222; 99231; 99238; A9270-GY; G0480; J1200; J1630; J2060